=== PATIENT | female | born 1960 | race Caucasian/White ===

== ENCOUNTER 2016-11-12 01:27 | Emergency (ER) | payer OTHER ==
[~2016-11-12] VITALS: Ht 154.9 cm; Wt 72.6 kg
[~2016-11-12 01:27] MED LIST: AMOXIL400 MG/5 M PO; AMOXIL500 MG PO; ASPIRIN CHILDRE81 MG PO; ATORVASTATIN CA80 MG PO; BLM PO; CARAFATE1 GM/10 ML PO; CRESTOR20 MG PO; FLUCONAZOLE150 MG PO; FOLIC ACID 1 MG PO; GOOD SENSE ASPI81 M1 PO; IMURAN 50MG TAB50 MG PO; LEFLUNOMIDE20 MG PO; LOPRESSOR 12.12.5 MG PO; MILLIPRED5 MG PO; NITROGLYCER0.4 MG/HR TD; NYSTATIN100000 U/M PO; PREDNISONE 10MG10 M1 PO; PREDNISONE5 MG PO
--- NOTE | 2016-11-12 01:50 | ED GI/GU/ABDOMINAL COMPLAINT ---
History of Present Illness General Chief Complaint: Abdominal Pain/Flank Pain Stated Complaint: ABD PAIN X3DAYS WITH CONSTIPATION Source: patient Exam Limitations: no limitations Vital Signs & Intake/Output Vital Signs & Intake/Output Vital Signs Date Time Temp Pulse Resp B/P Pulse O2 O2 Flow FiO2 Ox Delivery Rate 11/12 0134 97.6 69 16 120/76 97 Room Air Allergies Coded Allergies: NO KNOWN ALLERGIES (09/03/13) Reconcile Medications Aspirin (Children's Aspirin) 81 MG TAB.CHEW 2 TAB PO DAILY BLOOD THINNER Folic Acid 1 MG TABLET 1 MG PO DAILY FOLIC ACID SUPPLEMENT (Reported) Leflunomide 20 MG TAB 1 TAB PO DAILY TAKAYASU'S ARTERITIS (Reported) Metoprolol Tartrate (Lopressor) 12.5 MG TAB 1 TAB PO BID hypertension Prednisone 10 MG TABLET 2 TAB PO DAILY Takayasu's arteritis Rosuvastatin Calcium (Crestor) 20 MG TABLET 1 TAB PO DAILY cholestrol ( Reported) Sucralfate (Carafate) 1 GM/10 ML LORENZO 10 ML PO 4 TIMES/DAY PRN GERD (Reported) 1 hour before meals and bedtime Triage Note: PT TO TRIAGE C/O R SIDE ABD PAIN X 3 DAYS. PT DENIES N/V/D. AFEBRILE. Triage Nurses Notes Reviewed? yes ? n Is pt currently ? No HPI: Patient presents for evaluation of a sudden onset of sharp right flank pain that began on Saturday. Patient states that she also has felt some abdominal bloating. The pain is described as a constant severe sharp pain that has gotten worse today. She denies any prior episodes. There is nothing that seems to make the pain feel better or worse. She states that onset of the pain occurred while running errands. She denies any associated fever, cold symptoms, vomiting, diarrhea, dysuria or vaginal issues. She states she also thinks she might be constipated with her last bowel movement being a small bowel movement this morning. She seems to think that this is related to the change in her brand name Crestor to the generic. Past History Travel History Traveled to [place] past 21 day No Medical History Any Pertinent Medical History? see below for history Neurological: NONE EENT: NONE Cardiovascular: CAD, hyperlipidemia, TAKAYASU'S ARTERITIS LEFT ARTERY STENOSIS HYPOTENSION Chronic occlusion of left subclavian, and left common carotid arteries Respiratory: LUNG NODULE Gastrointestinal: GERD Hepatic: NONE Renal: NONE Musculoskeletal: NONE Psychiatric: NONE Endocrine: NONE Blood Disorders: NONE Cancer(s): NONE [employer]/Reproductive: NONE Other Medical Hx: TAKAYASU'S ARTERITIS History of MRSA: No History of VRE: No History of CDIFF: No Surgical History Surgical History: N Psychosocial History Who do you live with Family Services at Home None What is your primary language Togolese Tobacco Use: Never used ETOH Use: denies use Family History Family History, If Any: MOTHER FH: CAD (coronary artery disease) Hx Contributory? No Review of Systems Review of Systems Constitutional: Reports: no symptoms. EENTM: Reports: no symptoms. Respiratory: Reports: no symptoms. Cardiovascular: Reports: no symptoms. GI: Reports: see HPI. Genitourinary: Reports: no symptoms. Musculoskeletal: Reports: no symptoms. Skin: Reports: no symptoms. Neurological/Psychological: Reports: no symptoms. Hematologic/Endocrine: Reports: no symptoms. Immunologic/Allergic: Reports: no symptoms. All Other Systems: Reviewed and Negative Physical Exam Physical Exam Gastrointestinal: see below Comments: Gen.: Well-nourished, well-developed, no acute respiratory distress. Head: Normocephalic, atraumatic. Eyes: Normal inspection bilaterally Ears: Normal inspection bilaterally Nose: Normal inspection Throat/mouth : Moist mucosa Neck: Supple, full range of motion, no goiter Heart: Regular rate and rhythm, no murmurs rubs or gallops Lungs: Clear to auscultation bilaterally with normal air entry Chest: Nontender Back: Normal range of motion, no CVAT Abdomen: Soft, nontender, nondistended, normal bowel sounds Extremities: Normal range of motion grossly, equal radial pulses, no cyanosis clubbing or edema Neurologic: Cranial nerves grossly intact, speech is clear Skin: warm and dry Psychiatric: Calm, cooperative, no apparent delusions or hallucinations Core Measures ACS in differential dx? No Severe Sepsis Present: No Septic Shock Present: No Progress Differential Diagnosis: renal colic, biliary colic, appendicitis, shingles Plan of Care: Orders Procedure Date/time Status URINALYSIS 11/12 148 Active LIPASE 11/12 148 Complete COMPREHENSIVE METABOLIC PANEL 11/12 148 Complete CBC WITHOUT DIFFERENTIAL 11/12 148 Complete Laboratory Tests 11/12/16 0205: Anion Gap 10, Estimated GFR > 60, BUN/Creatinine Ratio 30.0 H, Glucose 130 H, Calcium 9.2, Total Bilirubin 0.3, AST 21, ALT 32, Alkaline Phosphatase 82, Total Protein 6.9, Albumin 3.9, Globulin 3.0, Albumin/Globulin Ratio 1.3, Lipase 198, CBC w Diff NO MAN DIFF REQ, RBC 4.58, MCV 82.3, MCH 28.0, RDW 14.6 H, MPV 9.8, Gran % 62.1, Lymphocytes % 28.1, Monocytes % 6.8, Eosinophils % 2.6, Basophils % 0.4, Absolute Granulocytes 6.5, Absolute Lymphocytes 2.9, Absolute Monocytes 0.7 H, Absolute Eosinophils 0.3, Absolute Basophils 0, PUBS MCHC 34.0 Diagnostic Imaging: Discussed w/RAD: CT Scan. Initial ED EKG: none Comments: Patient declined IV pain medication (I have instructed her that I wanted to avoid oral medication until the evaluation was complete). 11/12/2016 3:07:13 AM patient ultimately took the IV acetaminophen with good response of her pain. She has declined any further medication here in the emergency department. I have advised her of the CAT scan findings. Departure Departure Disposition: HOME OR SELF CARE Condition: Stable Clinical Impression Primary Impression: Abdominal pain Qualifiers: Abdominal location: unspecified location Qualified Code: R10.9 - Unspecified abdominal pain Secondary Impressions: Constipation Qualifiers: Constipation type: unspecified constipation type Qualified Code: K59.00 - Constipation, unspecified Gallstone Qualifiers: Cholecystitis presence: without cholecystitis Biliary obstruction: without biliary obstruction Qualified Code: K80.20 - Calculus of gallbladder without cholecystitis without obstruction Referrals: SANDY MUÑOZ,EZIO Terrazas (PCP/Family) Referred to [facility] as new patient No Additional Instructions: Tylenol as needed for pain. Add Ultram if necessary. [id number] MiraLAX or magnesium citrate for constipation. Follow-up with your primary care doctor within 48 hours for reevaluation. Return if any concerns or sudden worsening. Please note that there might be incidental findings in your evaluation that are unrelated to the current emergency department visit. Please notify your primary care doctor about this emergency department visit in order to obtain and review all of the testing performed so that these incidental findings can be monitored as needed. If you had an x-ray performed, please understand that some fractures may not be seen on the initial set of x-rays. If your symptoms persist you might need a repeat set of x-rays to check for such a fracture. If you had a laceration evaluated, please understand that foreign bodies such as glass or wood may not be visible to the naked eye or on plain x-rays. If the wound becomes red, swollen, increasingly more painful or if there is any drainage from the wound, please have it reevaluated by a physician for the possibility of a retained foreign body. Thank you for choosing the [facility] Emergency Department for your care. It was a pleasure to serve you today. Topher Lisa M.D. [facility] Departure Forms: Customer Survey General Discharge Information Prescriptions: Current Visit Scripts Tramadol HCl (Ultram) 1 TAB PO Q6P PRN pain #12 TAB Sucralfate (Carafate) 10 ML PO 4 TIMES/DAY #1200 ML 1 hour before food and bedtime Critical Care Note Critical Care Note Critical Care Time: 30-74 min
[2016-11-12 02:13] LABS: ABSOLUTE BASOPHIL COUNT 0 /CUMM (0.0-0.2); ABSOLUTE EOSINOPHIL COUNT 0.3 /CUMM (0.0-0.7); ABSOLUTE GRANULOCYTE CT 6.5 /CUMM (1.4-6.5); ABSOLUTE LYMPH COUNT 2.9 /CUMM (1.2-3.4); ABSOLUTE MONOCYTE COUNT 0.7 /CUMM (0.10-0.60); BASOPHIL % 0.4 % (0.0-2.0); EOSINOPHIL % 2.6 % (0-5); GRANULOCYTE % 62.1 % (42.2-75.2); HEMATOCRIT 37.7 % (37-47); MEAN CORPUSCULAR VOLUME 82.3 FL (81.0-99.0); MEAN PLATELET VOLUME 9.8 FL (7.4-10.4); PLATELET COUNT 243 /CUMM (130-400); RBC DISTRIBUTION WIDTH 14.6 % (11.5-14.5); RED BLOOD CELL CT 4.58 /CUMM (4.20-5.40); WHITE BLOOD CELL COUNT 10.4 /CUMM (4.8-10.8)
--- NOTE | 2016-11-12 02:38 | CT SCAN REPORT ---
EXAMINATION: CT ABDOMEN AND PELVIS WITHOUT CONTRAST CLINICAL INFORMATION: Right flank abdominal pain. COMPARISON: 03/31/2015 TECHNIQUE: Multidetector volumetric imaging was performed from the superior aspect of the liver through the pubic symphysis. Sagittal and coronal reformatted images were obtained on the technologist's workstation. DLP: 391.5 mGy-cm. FINDINGS: LUNG BASES: Mild dependent atelectasis LIVER, GALLBLADDER, AND BILIARY TREE: The liver is normal in size, shape, and attenuation. No focal hepatic lesion or biliary ductal dilatation is present. There is a 0.7 cm calcified gallstone within the gallbladder. Gallbladder is largely contracted and otherwise unremarkable. Biliary ducts are normal in caliber. PANCREAS: Unremarkable. SPLEEN: Unremarkable. ADRENAL GLANDS: Unremarkable. KIDNEYS AND URETERS: The kidneys are normal in size, shape, and attenuation. No hydronephrosis, hydroureter, or calculi seen. No perinephric stranding. BLADDER: Unremarkable. GASTROINTESTINAL TRACT: Stomach, small bowel, and colon are normal in caliber. A moderate large amount of ingested material is present throughout the stomach. Appendix is normal. No intraperitoneal free fluid or free air. No significant bowel wall thickening. Fecal material is present within the distal ileum. ABDOMINAL WALL: No significant hernia is appreciated. LYMPH NODES: Normal. VASCULAR: Unremarkable. PELVIC VISCERA: The uterus and adnexa are unremarkable. OSSEOUS STRUCTURES: There is facet arthropathy in the lower lumbar spine L5-S1 with mild anterolisthesis of L5 on S1 (3 mm). No fracture. Mild degenerative arthritis in the SI joints. IMPRESSION: 1. No acute intra-abdominal or intrapelvic abnormalities. 2. A 0.[address] findings of acute cholecystitis. 3. Fecal material throughout the distal ileum as can be seen with fecal stasis or slow bowel transit. No acute findings in this regard.
[2016-11-12] MEDS ORDERED: ULTRAM50 M1 PO (03:10)
[2016-11-12] MEDS ORDERED: CARAFATE1 GM/10 M1 PO (03:10)
[2016-11-12 03:26] VITALS: BP 109/65
== END 2016-11-12 03:27 ==
LOC: ERH 01:27
PROVIDERS: Emergency Medicine
DX: K80.20 Calculus of gallbladder without cholecystitis without obstruction (principal); K59.00 Constipation, unspecified
CPT/HCPCS: 74176; 96374; J0131